=== PATIENT | male | born 1985 | race Caucasian/White ===

== ENCOUNTER 2017-06-12 14:46 | Emergency (ER) | payer MEDICAID ==
[~2017-06-12] VITALS: Ht 154.9 cm; Wt 56.0 kg
[~2017-06-12 14:46] MED LIST: HYDR-3498 PO; IBUP-1542 PO; TAMS-14 PO
[2017-06-12 14:49] VITALS: Ht 154.9 cm; Wt 56.0 kg
--- NOTE | 2017-06-12 15:53 | ERD ---
ER Documentation Chief Complaint Date/Time DATE: 06/12/17 TIME: 15:48 Chief Complaint pam hand numbness x 3 weeks HPI Patient is a 31-year-old male with no past medical history presents emergency department for concerns of bilateral hand numbness 3 weeks. Patient describes his symptoms to be intermittent in nature. Patient reports numbness and tingling to his bilateral hands. He states that he has more episodes of this numbness during night. Patient does remember sleeping with his arms bent tucked under his pillow. Patient denies any trauma or falls. 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 Patient denies any fevers or chills. At this time patient has no numbness or tingling. Patient is able to move all his fingers wrist and arms without any difficulty. Patient has normal sensation at this time. Patient denies any headache, blurry vision, nausea, vomiting, chest pain, shortness breath or LOC. Patient denies any neck pain, neck stiffness or back pain. Patient able to ambulate without difficulty. Patient speaking in full sentences. No recent travel or environment changes. ROS All systems reviewed and are negative except as per history of present illness. Medications Home Meds Active Scripts Ibuprofen* (Motrin*) 600 Mg Tab, 600 MG PO Q6, #30 TAB Prov:KATELIN ALLEN PA-C 09/24/16 Tamsulosin Hcl* (Flomax*) 0.4 Mg Cap.er.24h, 0.4 MG PO QPM, #10 CAP Prov:JOSE MANUEL WOOD MD 12/20/15 Hydrocodone Bit-Acetaminophen* ([place]*) 5-325 Mg Tab, 1 TAB PO Q6 Y for PAIN, # 7 TAB Prov:JOSE MANUEL WOOD MD 12/20/15 Allergies Allergies: Coded Allergies: No Known Allergies (Verified Allergy, Mild, 09/24/16) PMhx/Soc History of Surgery: No Anesthesia Reaction: No Hx Neurological Disorder: No Hx Respiratory Disorders: No Hx Cardiac Disorders: No Hx Psychiatric Problems: No Hx Miscellaneous Medical Probl: Yes (KIDNEY STONES) Hx Alcohol Use: No Hx Substance Use: No Hx Tobacco Use: Yes Smoking Status: Current every day smoker Physical Exam Vitals Vital Signs Date Time Temp Pulse Resp B/P Pulse Ox O2 Delivery O2 Flow Rate FiO2 06/12/17 14:49 98.2 74 18 143/74 99 Physical Exam GENERAL: Well-developed, well-nourished male. Appears in no acute distress. HEAD: Normocephalic, atraumatic. EYES: Pupils are equally reactive bilaterally. EOMs grossly intact. No conjunctival erythema. ENT: Moist mucous membranes. No uvula deviation. No kissing tonsils. NECK: Supple. No meningismus. Normal range of motion of the neck. Nontender to palpation of cervical spine and paraspinalis muscles. LUNG: Clear to auscultation bilaterally. No rhonchi, wheezing, rales or coarse breath sounds. HEART: Regular rate and rhythm. No murmurs, rubs or gallops. EXTREMITIES: Equal pulses bilaterally. No peripheral clubbing, cyanosis or edema. No unilateral leg swelling. NEUROLOGIC: Alert and oriented x3, cooperative. Mood and affect appropriate to situation. Cranial nerves II through XII are grossly intact. Normal speech. Motor exam: 5/5 strength in upper and lower extremities. Sensory exam: Sensation intact to light touch on all four extremities. Cerebellar function exam: No dysmetria on [id number] test. Steady gait. No pronator drift. SKIN: Normal color. Warm and dry. No rashes or lesions. BILATERAL UE: No deformity, erythema, ecchymosis or swelling. Skin intact. No bursal swelling. Full ROM of elbows, wrists and all digits. Able to supinate and pronate without difficulty. Non-tender to palpation. Sensation intact to light touch. Neurovascularly intact. Able to give thumbs up, make an ok sign, cross digits 2 and 3, thumb to pinky opposition bilaterally. 2+ RP. No snuffbox tenderness. Negative Tinel sign. Negative Phalen sign. Procedures/MDM MEDICAL DECISION MAKING: This is a 31 year old presents with bilateral hand numbness and tingling x 3 weeks. Vital signs were reviewed. Patient was afebrile. Patient denied trauma or fall injuries. Patient was neurovascularly intact bilaterally. Neuro exam was normal. Patient had no neck or back pain. Given these findings, the patient's presentation is most consistent with peripheral neuropathy and paresthesias of unknown etiology. Low suspicion for dislocation, carpal fracture, scaphoid fracture, metacarpal fracture, phalanx fracture, neurovascular injury, tendon injury, acute neurological deficit, CVA, Guillain Sharon, brachial plexus injury, Carpal tunnel, toxicity. Patient is advised to follow-up with a neurologist for nerve conduction study. Patient was also advised to avoid sleeping with his arms tucked under his pillow. DISCHARGE: At this time, patient is stable for discharge and outpatient management. I have instructed the patient to follow-up with his/her primary care physician in 1-2 days. I have discussed with the patient the possibility of needing to see an neurologist for further workup and imaging if the pain persists. I have instructed the patient to promptly return to the ER for any new or worsening symptoms including increased pain, swelling, redness, warmth or fever. The patient and/or family expressed understanding of and agreement with this plan. All questions were answered. Home care instructions were provided. Departure Diagnosis: Primary Impression: Numbness and tingling in both hands Condition: Stable Patient Instructions: Paraesthesias Referrals: PERFECTO YUN MD,SNEHA YOST MD, ANDREW M MD KARAYAN,PHILIP ALDRIDGE,[facility] YOU HAVE RECEIVED A MEDICAL SCREENING EXAM AND THE RESULTS INDICATE THAT YOU DO NOT HAVE A CONDITION THAT REQUIRES URGENT TREATMENT IN THE EMERGENCY DEPARTMENT. FURTHER EVALUATION AND TREATMENT OF YOUR CONDITION CAN WAIT UNTIL YOU ARE SEEN IN YOUR DOCTORS OFFICE WITHIN THE NEXT 1-2 DAYS. IT IS YOUR RESPONSIBILITY TO MAKE AN APPOINTMENT FOR FOLOW-UP CARE. IF YOU HAVE A PRIMARY DOCTOR --you should call your primary doctor and schedule an appointment IF YOU DO NOT HAVE A PRIMARY DOCTOR YOU CAN CALL OUR PHYSICIAN REFERRAL HOTLINE AT IF YOU CAN NOT AFFORD TO SEE A PHYSICIAN YOU CAN CHOSE FROM THE FOLLOWING [facility], [facility] [address] [facility] [address] [facility] [address] [facility] [address] [facility] [address] [facility]. [facility]. [address] [facility] YOU HAVE RECEIVED A MEDICAL SCREENING EXAM AND THE RESULTS INDICATE THAT YOU DO NOT HAVE A CONDITION THAT REQUIRES URGENT TREATMENT IN THE EMERGENCY DEPARTMENT. FURTHER EVALUATION AND TREATMENT OF YOUR CONDITION CAN WAIT UNTIL YOU ARE SEEN IN YOUR DOCTORS OFFICE WITHIN THE NEXT 1-2 DAYS. IT IS YOUR RESPONSIBILITY TO MAKE AN APPOINTMENT FOR FOLOW-UP CARE. IF YOU HAVE A PRIMARY DOCTOR --you should call your primary doctor and schedule and appointment IF YOU DO NOT HAVE A PRIMARY DOCTOR YOU CAN CALL OUR PHYSICIAN REFERRAL HOTLINE AT . IF YOU CAN NOT AFFORD TO SEE A PHYSICIAN YOU CAN CHOSE FROM THE FOLLOWING [facility] INSTITUTIONS: [facility] [address] [place] [address] [facility] [address] [place] [address] [facility] + [facility] [address] [place] [address] Additional Instructions: Call your primary care doctor TOMORROW for an appointment during the next 1-2 days.See the doctor sooner or return here if your condition worsens before your appointment time. We need to follow-up with a neurologist for further management and workup of her symptoms. You may need a nerve conduction study on an outpatient basis. ADAM STEWART PA-C Jun 12, 2017 15:53 ADAM STEWART PA-C Jun 12, 2017 15:53
== END 2017-06-12 16:45 | disposition home or self-care (01) ==
LOC: FTE 14:46
DX: R20.0 Anesthesia of skin (principal); R20.2 Paresthesia of skin; F17.210 Nicotine dependence, cigarettes, uncomplicated
CPT/HCPCS: 99282

== ENCOUNTER 2018-11-27 21:13 | Emergency (ER) | payer MEDICAID, OTHER ==
[~2018-11-27] VITALS: Ht 162.6 cm; Wt 65.5 kg
[2018-11-27 21:49] VITALS: Ht 162.6 cm; Wt 65.5 kg
--- NOTE | 2018-11-28 02:46 | ERD ---
ER Documentation Chief Complaint Chief Complaint injured RT ankle yesterday while playing basketball. +pain and swelling HPI Patient is a 33-year-old male presents to the ER for concerns of right ankle pain times 2 days. Patient states he was playing baseball he jumped up and landed wrong. Patient states he recalls hearing a pop. Patient has pain and swelling to the lateral aspect of his right foot and ankle. Patient denies any previous fractures or dislocations. Patient denies any fevers or chills. Patient states he is able to bear weight to the affected extremity however it is painful. Patient reports taking 2 Excedrin prior to arrival. ROS All systems reviewed and are negative except as per history of present illness. Medications Home Meds Active Scripts Ibuprofen* (Motrin*) 600 Mg Tab, 600 MG PO Q6, #30 TAB Prov:ADAM STEWART PA-C 11/28/18 Ibuprofen* (Motrin*) 600 Mg Tab, 600 MG PO Q6, #30 TAB Prov:KATELIN ALLEN PA-C 09/24/16 Tamsulosin Hcl* (Flomax*) 0.4 Mg Cap.er.24h, 0.4 MG PO QPM, #10 CAP Prov:JOSE MANUEL WOOD MD 12/20/15 Hydrocodone Bit-Acetaminophen* ([place]*) 5-325 Mg Tab, 1 TAB PO Q6 PRN for PAIN, #7 TAB Prov:JOSE MANUEL WOOD MD 12/20/15 Allergies Allergies: Coded Allergies: No Known Allergies (Verified Allergy, Mild, 11/27/18) PMhx/Soc History of Surgery: No Anesthesia Reaction: No Hx Neurological Disorder: No Hx Respiratory Disorders: No Hx Cardiac Disorders: No Hx Psychiatric Problems: No Hx Miscellaneous Medical Probl: Yes (KIDNEY STONES) Hx Alcohol Use: No Hx Substance Use: No Hx Tobacco Use: Yes FmHx Family History: No diabetes Physical Exam Vitals Vital Signs Date Temp Pulse Resp B/P (MAP) Pulse Ox O2 O2 Flow FiO2 Time Delivery Rate 11/27/18 98.0 54 20 143/82 99 21:49 (102) Physical Exam GENERAL: Well-developed, well-nourished male. Appears in no acute distress. HEAD: Normocephalic, atraumatic. EYES: Pupils are equally reactive bilaterally. EOMs grossly intact. No conjunctival erythema. ENT: Moist mucous membranes. No uvula deviation. No kissing tonsils. NECK: Supple. No meningismus. Normal range of motion of the neck. LUNG: No respiratory distress EXTREMITIES: Equal pulses bilaterally. No peripheral clubbing, cyanosis or edema. No unilateral leg swelling. NEUROLOGIC: Alert and oriented. Moving all four extremities without any difficulty. Normal speech. Steady gait. SKIN: Normal color. Warm and dry. No rashes or lesions. RLE: Swelling and ecchymosis noted to the lateral aspect of the foot and ankle. Decreased range of motion of the ankle secondary to pain. Tender to palpation over the lateral ankle, fifth metatarsal, midfoot. Nontender palpation of the proximal fibula/tibia. Sensation intact to light touch. Neurovascularly intact. (Able to plantarflex, dorsiflex, rosa foot, invert foot, raise big toe.) 2+ DP and DT pulses. Procedures/MDM ED COURSE: The patient was stable throughout ED course. I kept the patient and/or family informed of laboratory and diagnostic imaging results throughout the ED course. DIAGNOSTIC IMAGING REPORT Patient: YOSHI SMALL : 1985 Age: 33 Sex: M MR #: [id number] DOS: 11/28/18 0238 Ordering MD: ADAM STEWART PA-C Location: [facility] Room/Bed: PROCEDURE: Right ankle series CLINICAL INDICATION: Pain TECHNIQUE: AP, lateral and oblique images were obtained of the right ankle COMPARISON: None FINDINGS: There is soft tissue swelling along the lateral right ankle. No evidence of acute fracture dislocation. No focal bony blastic or lytic lesions. Atherosclerotic vascular disease present. IMPRESSION: Soft tissue swelling involving the right lateral ankle without acute fracture or dislocation. RPTAT:AAJJ Physician Parker Date Time Electronically viewed and signed by Physician Parker on 11/28/2018 03:44 BM/ CC: ADAM STEWART PA-C [id number] DIAGNOSTIC IMAGING REPORT Patient: YOSHI SMALL : 1985 Age: 33 Sex: M MR #: [id number] DOS: 11/28/18 0238 Ordering MD: ADAM STEWART PA-C Location: [facility] Room/Bed: PROCEDURE: XR Foot Right 3 View (Routine) CLINICAL INDICATION: Lateral pain. TECHNIQUE: VIEWS: 3 IMAGES: 3 COMPARISON: Concurrent right ankle x-rays. FINDINGS: OSSEOUS STRUCTURES Fractures: Slight cortical fracture fragment is seen along the lateral margin of the talus on the AP view. There is adjacent soft tissue swelling. No other fractures are seen. JOINTS Joint Space(s): Preserved. IMPRESSION: 1. Slight cortical fracture fragment of the lateral margin of the talus suggests avulsion injury of the anterior talofibular ligament. RPTAT:HGST Frank Gonzalez Physician Date Time Electronically viewed and signed by Frank Gonzalez Physician on 11/28/2018 03:41 GT/ CC: ADAM STEWART PA-C [id number] SPLINT APPLICATION: The patient was verbally consented at bedside prior to splint application. Patient was explained the risks, benefits and alternatives to this procedure. The patient was neurovascularly intact prior to and status post application of the splint. The patient tolerated the procedure well with no complications. Splint type: Short leg splint Extremity: Right lower extremely Indication: Slight cortical fracture fragment of the lateral margin of the talus suggests avulsion injury of the anterior talofibular ligament. MEDICAL DECISION MAKING: This is a 33-year-old male presents the ER for concerns of right ankle and foot pain times 2 days.. Vital signs were reviewed. Patient was afebrile. Xrays showed Slight cortical fracture fragment of the lateral margin of the talus suggests avulsion injury of the anterior talofibular ligament. At this time, patient presentation most consistent with talus fracture. Patient was placed in a short leg splint and given crutches. Patient advised to remain nonweightbearing to the affected extremity. Patient advised on need to follow- up with an recreation program specialist for further management of symptoms. Low suspicion for ankle dislocation, tibia fracture, fibula fracture, tibial plateau fracture, Maisonneuve fracture, foot fracture, osteomyelitis, septic joint, gout, osteoarthritis, DVT, compartment syndrome or ankle sprain. At this time, unable to rule out any tendon and ligament injuries. PRESCRIPTIONS: Ibuprofen DISCHARGE: At this time, patient is stable for discharge and outpatient management. RICE therapy and ROM exercises were advised to avoid stiffness. I have instructed the patient to follow-up with his/her primary care physician in 1-2 days. I have discussed with the patient the possibility of needing to see an recreation program specialist for further workup and imaging if the pain persists. I have instructed the patient to promptly return to the ER for any new or worsening symptoms including increased pain, swelling, redness, warmth or fever. The patient and/or family expressed understanding of and agreement with this plan. All questions were answered. Home care instructions were provided. Disclaimer: Inadvertent spelling and grammatical errors are likely due to EHR/dictation software use and do not reflect on the overall quality of patient care. Also, please note that the electronic time recorded on this note does not necessarily reflect the actual time of the patient encounter. Departure Diagnosis: Primary Impression: Ankle pain Chronicity: acute Laterality: right Qualified Codes: M25.571 - Pain in right ankle and joints of right foot Additional Impression: Talus fracture Encounter type: initial encounter Fracture type: closed Fracture morphology: avulsion Fracture alignment: nondisplaced Laterality: unspecified laterality Qualified Codes: S92.156A - Nondisplaced avulsion fracture (chip fracture) of unspecified talus, initial encounter for closed fracture Condition: Stable Referrals: [facility], [facility] YOU HAVE RECEIVED A MEDICAL SCREENING EXAM AND THE RESULTS INDICATE THAT YOU DO NOT HAVE A CONDITION THAT REQUIRES URGENT TREATMENT IN THE EMERGENCY DEPARTMENT. FURTHER EVALUATION AND TREATMENT OF YOUR CONDITION CAN WAIT UNTIL YOU ARE SEEN IN YOUR DOCTORS OFFICE WITHIN THE NEXT 1-2 DAYS. IT IS YOUR RESPONSIBILITY TO MAKE AN APPOINTMENT FOR FOLOW-UP CARE. IF YOU HAVE A PRIMARY DOCTOR --you should call your primary doctor and schedule an appointment IF YOU DO NOT HAVE A PRIMARY DOCTOR YOU CAN CALL OUR PHYSICIAN REFERRAL HOTLINE AT IF YOU CAN NOT AFFORD TO SEE A PHYSICIAN YOU CAN CHOSE FROM THE FOLLOWING [facility] [address] [facility] [address] [facility] [address] [facility] [address] [facility]. [facility] [address] [facility]. [facility]. [address] [facility]. [facility] YOU HAVE RECEIVED A MEDICAL SCREENING EXAM AND THE RESULTS INDICATE THAT YOU DO NOT HAVE A CONDITION THAT REQUIRES URGENT TREATMENT IN THE EMERGENCY DEPARTMENT. FURTHER EVALUATION AND TREATMENT OF YOUR CONDITION CAN WAIT UNTIL YOU ARE SEEN IN YOUR DOCTORS OFFICE WITHIN THE NEXT 1-2 DAYS. IT IS YOUR RESPONSIBILITY TO MAKE AN APPOINTMENT FOR FOLOW-UP CARE. IF YOU HAVE A PRIMARY DOCTOR --you should call your primary doctor and schedule and appointment IF YOU DO NOT HAVE A PRIMARY DOCTOR YOU CAN CALL OUR PHYSICIAN REFERRAL HOTLINE AT . IF YOU CAN NOT AFFORD TO SEE A PHYSICIAN YOU CAN CHOSE FROM THE FOLLOWING [facility] INSTITUTIONS: [facility] [address] [place] [address] [facility] [address] [place] [address] [facility] [address] [place] [address] Additional Instructions: Unable to rule any ligament or tendon injuries. Follow-up with an recreation program specialist on outpatient basis. Call your primary care doctor TOMORROW for an appointment during the next 1-2 days.See the doctor sooner or return here if your condition worsens before your appointment time. ADAM STEWART PA-C Nov 28, 2018 02:46
[2018-11-28] MEDS ORDERED: IBUP-1542 PO (04:41)
[2018-11-28 04:55] VITALS: BP 135/86; PULSE 64; RESP 18
== END 2018-11-28 05:02 | disposition home or self-care (01) ==
LOC: FTE 21:13
DX: S92.15 Avulsion fracture (chip fracture) of talus (principal); X50.1XXA Overexertion from prolonged static or awkward postures, initial encounter; Y92.9 Unspecified place or not applicable; Z87.891 Personal history of nicotine dependence
CPT/HCPCS: 73630